=== PATIENT | female | born 1995 | race American Indian/Alaskan Native ===

== ENCOUNTER 2017-02-23 16:44 | Emergency (ER) | payer OTHER ==
[2017-02-23 17:00] VITALS: O2SAT 100
[2017-02-23] MEDS ORDERED: Sodium Chloride 0.9% 1,000 ML IV STA ×2 (17:14→19:08)
--- NOTE | 2017-02-23 17:30 | ED PDOC ---
HPI: General Adult Time Seen by Provider: 02/23/17 17:09 Chief Complaint (Nursing): Flu-like Symptoms Chief Complaint (Provider): Flu-like Symptoms History Per: Patient History/Exam Limitations: no limitations Onset/Duration Of Symptoms: Hrs (since this morning) Have you had recent travel within the past 21 days to any of the following countries: [place], [place], [place] or [place]?: No Current Symptoms Are (Timing): Still Present Additional Complaint(s): Yoko Thorpe is a 21 year old female, with no pertinent past medical history , who presents to the ED on 02/23/17 for the evaluation of flu-like symptoms that she has experienced since waking up this morning. Symptoms had initially begun with a sore throat but had progressed to include a fever (Tmax 102F), diffuse myalgias and slight nausea when she had woken up from a nap approximately 1 hour prior to arrival. Denies cough, vomiting, dysuria or hematuria. Had medicated with an antipyretic prior to arrival. Of note, patient had initially visited a [facility] for evaluation where she had tested negative for Strep. She had then reportedly been referred to the ED in order to rule out bacterial meningitis as at that time she was also complaining of a headache and some "stiffness" within her neck. Upon interview, patient describes headache as very mild, generalized and not the worst of her life. "Stiffness" is further described as a mild straining with the ranging of her neck, though she reports being able to do so fully. 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 - Family History Family History: States: Unknown Family Hx - Home Medications Home Medications: Ambulatory Orders Medication Instructions Recorded Acetaminophen [Tylenol 325mg tab] 650 mg PO PRN PRN 02/23/17 - Allergies Allergies/Adverse Reactions: Allergies Allergy/AdvReac Type Severity Reaction Status Date / Time almond Allergy RASH Verified 02/23/17 17:01 pineapple Allergy RASH Verified 02/23/17 17:01 Review of Systems Constitutional: Positive for: Fever (Tmax 102F), Other (diffuse myalgias) ENT: Positive for: Throat Pain Respiratory: Negative for: Cough Gastrointestinal: Positive for: Nausea (slight). Negative for: Vomiting Genitourinary Female: Negative for: Dysuria, Hematuria Musculoskeletal: Positive for: Neck Pain (mild straining with ROM of neck though able to do so fully) Neurological: Positive for: Headache (mild, generalized, not worst of life) Physical Exam - Reviewed Nursing Documentation Reviewed: Yes Vital Signs Reviewed: Yes - Physical Exam Appears: Positive for: Non-toxic, No Acute Distress Head Exam: Positive for: ATRAUMATIC, NORMOCEPHALIC Skin: Positive for: Normal Color, Warm, Dry Eye Exam: Positive for: Normal appearance, EOMI, PERRL ENT: Positive for: Normal ENT Inspection. Negative for: Pharyngeal Erythema, Tonsillar Exudate, Tonsillar Swelling Neck: Positive for: Normal, Painless ROM (no meningismus), Supple Cardiovascular/Chest: Positive for: Regular Rate, Rhythm. Negative for: Murmur Respiratory: Positive for: Normal Breath Sounds. Negative for: Wheezing Gastrointestinal/Abdominal: Positive for: Normal Exam, Soft. Negative for: Tenderness Back: Positive for: Normal Inspection Extremity: Positive for: Normal ROM (able to move all extremities) Neurologic/Psych: Positive for: Alert, Oriented. Negative for: Motor/Sensory Deficits, Other (negative Kernig's and Brudzinski's signs) - Laboratory Results Result Diagrams: 02/23/17 17:40 02/23/17 17:40 - ECG O2 Sat by Pulse Oximetry: 100 (RA) Pulse Ox Interpretation: Normal Medical Decision Making Medical Decision Makin:09 Initial Impression: flu-like symptoms Initial Plan: * Labs * Upreg * Udip * Urinalysis * Blood Culture * IV NS 1000ml at 1000mls/hr * Toradol 10mg IV * Zofran 4mg IV * Reevaluation Scribe Attestation: Documented by Kellen Stewart, acting as a scribe for Leticia Marroquin MD. Provider Scribe Attestation: All medical record entries made by the Scribe were at my direction and personally dictated by me. I have reviewed the chart and agree that the record accurately reflects my personal performance of the history, physical exam, medical decision making, and the department course for this patient. I have also personally directed, reviewed, and agree with the discharge instructions and disposition. Disposition - Clinical Impression Clinical Impression: Pharyngitis, Neck pain - Disposition Referrals: [facility] [Outside] Disposition: Transfer of Care Disposition Time: 19:00 Condition: STABLE Additional Instructions: Return for worsening. Follow up with your PCP in 2-3 days. Take tylenol or motrin for pain or fever. Instructions: Pharyngitis (ED) Patient Signed Over To: Alfonso Partida
[2017-02-23 17:52] LABS: BASO # 0.1 K/uL (0.0-0.2); BASO % 0.3 % (0.0-2.0); EOS # 0.4 K/uL (0.0-0.7); EOS % 2.7 % (0.0-4.0); HEMATOCRIT 41.3 % (34.0-47.0); LYMPH # 0.6 K/uL (1.0-4.3); LYMPH % 3.6 % (20.0-40.0); MEAN CELL VOLUME 87.8 fl (81.0-99.0); MEAN CORPUSCULAR HEMOGLOBIN 29.1 pg (27.0-31.0); MEAN CORPUSCULAR HGB CONC 33.1 g/dL (33.0-37.0); MEAN PLATELET VOLUME 9.6 fl (7.2-11.7); MONO # 1.1 K/uL (0.0-0.8); MONO % 6.6 % (0.0-10.0); NEUT # 13.9 K/uL (1.8-7.0); NEUT % 86.8 % (50.0-75.0); PLATELET COUNT 212 K/uL (130-400); RED CELL DISTRIBUTION WIDTH 14.8 % (11.5-14.5)
[2017-02-23 18:16] LABS: ALB/GLOB RATIO 1.3 (1.0-2.1); ALKALINE PHOSPHATASE 67 U/L (38-126); ALT/SGPT 27 U/L (9-52); AST/SGOT 27 U/L (14-36); BILIRUBIN,TOTAL 0.9 mg/dl (0.2-1.3); BLOOD UREA NITROGEN 9 mg/dl (7-17); CALCIUM 9.6 mg/dL (8.4-10.2); CARBON DIOXIDE 25 mmol/L (22-30); CHLORIDE 102 mmol/L (98-107); GFR AFRICAN-AMERICAN > 60; GLUCOSE,RANDOM 93 mg/dL (65-105); POTASSIUM 4.1 MMOL/L (3.6-5.0); SODIUM 138 mmol/l (132-148); TOTAL PROTEIN 7.6 G/DL (6.3-8.2)
[2017-02-23 19:07] LABS: MYELOCYTE 2 % (0-0); NEUTROPHIL 91 % (42-75); TOTAL CELLS COUNTED 100
[2017-02-23 19:08] LABS: STOMATOCYTES MODERATE
[2017-02-23 19:26] LABS: RBC URINE 2 /hpf (0-3); URINE BACTERIA RARE (<OCC); URINE BILIRUBIN NEGATIVE (NEGATIVE); URINE BLOOD NEGATIVE (NEGATIVE); URINE COLOR YELLOW (YELLOW); URINE GLUCOSE (UA) NEG (Normal); URINE KETONE 20 mg/dL (NEGATIVE); URINE LEUKOCYTE ESTERASE NEG Leu/uL (Negative); URINE PROTEIN NEGATIVE (NEGATIVE); URINE UROBILINOGEN 0.2-1.0 mg/dL (0.2-1.0); WBC URINE 2 /hpf (0-5)
--- NOTE | 2017-02-23 19:28 | ED PDOC ---
- Laboratory Results Result Diagrams: 02/23/17 17:40 02/23/17 17:40 - ECG O2 Sat by Pulse Oximetry: 100 (RA) Pulse Ox Interpretation: Normal - Progress Re-evaluation Time: 20:18 Condition: Re-examined, Improved Medical Decision Making Medical Decision Makin:00 Patient endorsed over to me by Leticia Marroquin MD, pending remainder of IV fluids, reevaluation and final disposition. 2018 Pt is significantly improved. NO headache. Improved sore throat and neck stiffness. No fever or vomiting here. Scribe Attestation: Documented by Kellen Stewart, acting as a scribe for Alfonso Partida MD. Provider Scribe Attestation: All medical record entries made by the Scribe were at my direction and personally dictated by me. I have reviewed the chart and agree that the record accurately reflects my personal performance of the history, physical exam, medical decision making, and the department course for this patient. I have also personally directed, reviewed, and agree with the discharge instructions and disposition. Disposition Doctor Will See Patient In The: Office Counseled Patient/Family Regarding: Studies Performed, Diagnosis, Need For Followup - Clinical Impression Clinical Impression: Pharyngitis, Neck pain - POA Present On Arrival: None - Disposition Referrals: [facility] [Outside] Disposition: Routine/Home Disposition Time: 20:19 Condition: GOOD Additional Instructions: Return for worsening. Follow up with your PCP in 2-3 days. Take tylenol or motrin for pain or fever. Instructions: Pharyngitis (ED)
[2017-02-23 20:39] VITALS: BP 125/57; PULSE 97; RESP 17; TEMP 99
== END 2017-02-23 20:41 | disposition home or self-care (01) ==
LOC: H.ER 16:44
DX: J02.9 Acute pharyngitis, unspecified (principal); M54.2 Cervicalgia